=== PATIENT | female | born 1990 | race Caucasian/White ===

== ENCOUNTER 2019-03-15 00:51 | Emergency (ER) | payer OTHER ==
--- NOTE | 2019-03-15 01:00 | PDOC ---
History of Present Illness - General Chief Complaint: Nausea/Vomiting Stated Complaint: VOMITING ON AND OFF SINCE TUESDAY Time Seen by Provider: 03/15/19 01:00 History Source: Patient Exam Limitations: No Limitations - History of Present Illness Initial Comments: 03/15/19 01:04 This is a 28 her old female who comes in complaining of intermittent nausea and vomiting. Patient denies any fevers or chills, diarrhea or any chest pain any shortness of breath or any other complaints. Patient is otherwise healthy and takes no medications on a regular basis. Allergies: as per nursing notes Past Medical History: none Social history: Lives with family. No smoking. No alcohol. No illicit drugs. Surgical history: None General: No fevers or chills, no weakness, no weight loss HEENT: No change in vision. No sore throat,. No ear pain CardioVascular: no chest discomfort. No shortness of breath Respiratory:No cough, or wheezing. Gastrointestinal: + nausea, + vomiting, no diarrhea or constipation, No rectal bleeding Genitourinary: No dysuria, hematuria, or frequency Musculoskeletal: No joint or muscle pain or swelling Neurologic: No headache, vertigo, dizziness or loss of consciousness Psychiatric: nor depression Skin: No rashes or easy bruising Endocrine: no increased thirst or abnormal weight change Allergic: no skin or latex allergy All other systems reviewed and normal Exam: General: Well-nourished well-developed individual, no acute distress HEENT: Throat: Normal, tonsils normal, no erythema or exudate Neck: Supple, no meningeal signs, no lymphadenopathy Eyes::Pupils equal reactive and round, extraocular motion intact Chest: Nontender to palpation Cardiac: S1-S2 normal, regular rate and rhythm, no murmurs rubs or gallops Respiratory: Lungs clear to auscultation bilateral Abdomen: Soft, nondistended, normal bowel sounds, there is no tenderness on palpation diffusely Extremities: Warm, dry, no cyanosis, clubbing, or edema Skin: No rashes Neuro: Alert and oriented x3, CN II - XII intact, nonfocal exam with normal strength, normal sensation, normal reflexes, normal gait, Psych: Normal mood and affect Past History - Past Medical History Allergies/Adverse Reactions: Allergies Allergy/AdvReac Type Severity Reaction Status Date / Time No Known Allergies Allergy Verified 03/15/19 00:56 Home Medications: Ambulatory Orders Alprazolam [Xanax] 2 mg PO BID 03/15/19 Ondansetron [Zofran Odt -] 4 mg SL TID #12 od.tablet 03/15/19 *DC/Admit/Observation/Transfer Diagnosis at time of Disposition: Nausea and vomiting Qualifiers: Vomiting type: unspecified Vomiting Intractability: non-intractable Qualified Code(s): R11.2 - Nausea with vomiting, unspecified - Discharge Dispostion Disposition: HOME Condition at time of disposition: Stable Decision to Admit order: No - Referrals - Patient Instructions Additional Instructions: Clear liquids only for the next 6 hours.. After that if you have had no further vomiting you may have bananas, rice, applesauce, or toast. If no further vomiting for another 8 hours you may have regular food. If you vomit again then nothing to eat or drink for 2 hours. then start back with the clear liquids. Return to the emergency department immediately with ANY new, persistent or worsening symptoms. You MUST call and follow up with your doctor tomorrow if not better. Please make sure your doctor reviews the results of your emergency evaluation. - Post Discharge Activity Forms/Work/School Notes: Back to Work
[2019-03-15 01:01] VITALS: BP 112/65; PULSE 71; TEMP 98.3; BMI 23.0
[2019-03-15] MEDS ORDERED: ONDANSETRON *ODT* 4 MG TABLET ONE (01:04)
[2019-03-15] MEDS ORDERED: ONDANSETRON *ODT* 4 MG TABLET SL ONE (01:05)
== END 2019-03-15 01:12 | disposition home or self-care (01) ==
LOC: FER 00:51
DX: R11.2 Nausea with vomiting, unspecified (principal)
CPT/HCPCS: 99281-25; Q0162